=== PATIENT | female | born 1965 | race Caucasian/White ===

== ENCOUNTER 2018-10-25 11:44 | Inpatient (IN) ==
[2018-11-26] MEDS ORDERED: DULCOLAX PR PRN (09:22)
[2018-11-26] MEDS ORDERED: DESYREL PO PRN (09:22)
[2018-11-26] MEDS ORDERED: D5W 1,000 ML IV PRN (09:22)
[2018-11-26] MEDS ORDERED: MOTRIN PO PRN (09:22)
[2018-11-26] MEDS ORDERED: ROBAXIN PO PRN (09:22)
[2018-11-26] MEDS ORDERED: BENTYL PO PRN (09:22)
[2018-11-26] MEDS ORDERED: MAALOX PLUS LIQUID PO PRN (09:22)
[2018-11-26] MEDS ORDERED: ZOFRAN ODT PO PRN (09:22)
[2018-11-26] MEDS ORDERED: SENOKOT PO PRN (09:22)
[2018-11-26] MEDS ORDERED: SALINE LOCK IV FLUID XX ONE (09:22)
[2018-11-26] MEDS ORDERED: ZOFRAN IV PRN (09:22)
[2018-11-26] MEDS ORDERED: TUBERSOL ID ONE (09:22)
[2018-11-26] MEDS ORDERED: IMODIUM PO PRN (09:22)
[2018-11-26] MEDS ORDERED: TYLENOL PO PRN (09:22)
[2018-11-26] MEDS ORDERED: PHENOBARBITAL IV PRN (09:22)
[2018-11-26] MEDS ORDERED: LIBRIUM PO SCH (09:30)
[2018-11-26] MEDS ORDERED: M.V.I.-12 10 ML, FOLIC ACID 1 MG, MAGNESIUM SULFATE 1 GM, THIAMINE 100 MG in NS 1,000 ML IV ONE (10:30)
[2018-11-26 11:05] LABS: URINE SOURCE VOIDED
[2018-11-26 11:06] LABS: HEMATOCRIT 35.3 % (37.0-47.0); HEMOGLOBIN 12.1 g/dL (12.0-16.0); MCHC 34.3 g/dL (33-37); MPV 9.4 FL (7.4-10.4); RBC 3.46 XMIL (4.2-5.4); RDW 12.9 % (11.5-14.5); WBC 6.98 X1000 (4.8-10.8)
[2018-11-26 11:09] LABS: INR 0.97; PROTIME 13.4 Seconds (11.0-16.0)
[2018-11-26 11:11] LABS: AMYLASE 146 U/L (20-200); LIPASE 194 U/L (13-60)
[2018-11-26 11:15] LABS: ALBUMIN 4.3 g/dL (3.5-5.0); CALCIUM 8.6 mg/dL (8.8-10.2); CREATININE 1.6 mg/dL (0.5-0.9); POTASSIUM 4.5 mmol/L (3.5-5.1); TOTAL BILIRUBIN 0.5 mg/dL (0.20-1.00); TOTAL PROTEIN 7.3 g/dL (6.3-8.3)
[2018-11-26 11:16] LABS: BILIRUBIN URINE NEGATIVE (NEGATIVE); BLOOD URINE NEGATIVE (NEGATIVE); CLARITY SL. CLOUDY (CLEAR); COLOR YELLOW; GLUCOSE URINE NEGATIVE (NEGATIVE); KETONE URINE NEGATIVE (NEGATIVE); LEUKOCYTES URINE NEGATIVE (NEGATIVE); NITRITE URINE NEGATIVE (NEGATIVE); PROTEIN URINE TRACE mg/dL (NEGATIVE); UROBILINOGEN URINE NORMAL
[2018-11-26 11:23] LABS: URINE EPITHELIAL CELLS <10 /HPF (<10)
[2018-11-26 11:30] LABS: UR AMPHETAMINES QUAL NONE DETECTED (NONE DETECT); UR BARBITUATES QUAL NONE DETECTED (NONE DETECT); UR BENZODIAZEPIN QUAL PRESUMPTIVE POSITIVE (NONE DETECT); UR CANNABINOIDS QUAL NONE DETECTED (NONE DETECT); UR COCAINE QUAL NONE DETECTED (NONE DETECT); UR METHADONE QUAL NONE DETECTED (NONE DETECT); UR METHAMPHETAMINE QUAL NONE DETECTED (NONE DETECT); UR OPIATES QUAL NONE DETECTED (NONE DETECT); UR OXYCODONE QUAL NONE DETECTED (NONE DETECT); UR PCP QUAL NONE DETECTED (NONE DETECT); UR PROPOXYPHENE QUAL NONE DETECTED (NONE DETECT); UR TCA QUAL NONE DETECTED (NONE DETECT)
[2018-11-26] MEDS: LIBRIUM PO SCH ×2 (13:08→19:17)
[2018-11-26] MEDS: NICODERM PATCH TD PRN (14:27)
--- NOTE | 2018-11-26 19:56 | HISTORY AND PHYSICAL ---
CHIEF COMPLAINT: Nausea, vomiting. HISTORY OF PRESENT ILLNESS: Patient is 53-year-old female who [facility] secondary to nausea, vomiting, abdominal pain, myalgias. The patient has been having paroxysmal sweating, she has been abuse alcohol, has been trying to stop but withdrawal symptoms become too severe. SOCIAL HISTORY: Patient is , works at [employer]. She lives in [place]. PAST MEDICAL HISTORY: Hypertension, she had stent to the right coronary in May 2012 at [facility], she has a history of NV, gout, lupus, gastric ulcers, colitis. She has been trying to stop. She has had increased nausea, vomiting past week or so. She has had some weight loss. MEDICATIONS: Lasix 20, omeprazole 40, isosorbide 30, Xanax p.r.n., atorvastatin 80, metoprolol 50, benazepril 40, aspirin 81, citalopram 40, spironolactone 25, allopurinol 100, magnesium oxide 400. ALLERGIES: No known drug allergies. REVIEW OF SYSTEMS: CIWA score is 18 secondary to nausea, vomiting, tremors, headaches, myalgias, easily confused, paroxysmal sweating, anxious, tearful at times, unable to sit still, frequent sweating episodes, decreased oral intake. Denies any current chest pain, palpitation, shortness of breath. Denies any dysuria, frequency, urgency, hesitancy, polyuria, polydipsia. Denies skin rashes, weight loss or weight gain. SUBSTANCE ABUSE HISTORY: The patient was at [facility] in her mid 30s stayed 12 weeks in outpatient rehab. She has been inpatient psych few times secondary to depression. Notes that alcohol has caused trouble at her job and she is afraid that she is going to get fired. Started drinking at age 12, currently drinking vodka daily. FAMILY HISTORY: Noncontributory. PHYSICAL: Vital signs reviewed, stable. Patient is awake, alert, currently in no respiratory distress.HEENT: Normocephalic. Neck: Supple. CV: Regular rate. No murmurs. Chest: Clear, nonlabored. Abdomen: Soft, nondistended. Extremities: Moves all extremities. Neuro: She is awake, alert, oriented although she is fidgety on exam, has be redirected to answer questions. LABS: Pending. ASSESSMENT: 1. Nausea, vomiting. 2. Abdominal pain. 3. Myalgias. 4. Tremors. 5. Paresthesias. 6. Paroxysmal sweating. 7. Alcohol abuse withdrawal and admit for stabilization. 8. Coronary artery disease. 9. Hypertension. 10. High cholesterol. PLAN: Will continue patient on her chronic home medications although will watch her blood pressures closely, will continue to follow. Continue counseling and education. cc: Jonn Hannah MD
[2018-11-26] MEDS: SEROQUEL PO PRN (21:24)
[2018-11-26] MEDS: ATARAX PO PRN (21:24)
[2018-11-27] MEDS: LIBRIUM PO SCH ×4 (00:38→18:44)
[2018-11-27] MEDS: PROTONIX PO SCH (06:24)
[2018-11-27] MEDS: FOLIC ACID PO SCH (08:39)
[2018-11-27] MEDS: VITAMIN B-1 PO SCH (08:39)
[2018-11-27] MEDS: THERA M PLUS PO SCH (08:39)
[2018-11-27] MEDS: ZYLOPRIM PO SCH (10:48)
[2018-11-27] MEDS: ASPIRIN PO SCH (10:48)
[2018-11-27] MEDS: VITAMIN B-12 PO SCH (10:48)
[2018-11-27] MEDS: PYRIDOXINE PO SCH (10:48)
[2018-11-27] MEDS: LOPRESSOR PO SCH (10:48)
[2018-11-27] MEDS: ALDACTONE PO SCH (10:48)
[2018-11-27] MEDS: CELEXA PO SCH (10:49)
[2018-11-27] MEDS: PLAQUENIL PO SCH ×2 (10:49→20:04)
[2018-11-27] MEDS: MAG-OX PO SCH (10:49)
[2018-11-27] MEDS: IMDUR PO SCH (10:49)
[2018-11-27] MEDS: LASIX PO SCH (10:49)
[2018-11-27] MEDS: LOTENSIN PO SCH (10:49)
[2018-11-27] MEDS: SEROQUEL PO PRN (20:04)
[2018-11-27] MEDS: LIPITOR PO SCH (20:05)
[2018-11-27] MEDS: ATARAX PO PRN (20:05)
[2018-11-27] MEDS: NICODERM PATCH TD PRN (20:11)
[2018-11-28] MEDS: LIBRIUM PO SCH ×4 (01:07→17:17)
[2018-11-28] MEDS: PROTONIX PO SCH (06:17)
[2018-11-28] MEDS: VITAMIN B-12 PO SCH (10:18)
[2018-11-28] MEDS: FOLIC ACID PO SCH (10:18)
[2018-11-28] MEDS: VITAMIN B-1 PO SCH (10:18)
[2018-11-28] MEDS: ALDACTONE PO SCH (10:18)
[2018-11-28] MEDS: LOTENSIN PO SCH (10:18)
[2018-11-28] MEDS: PLAQUENIL PO SCH ×2 (10:19→20:32)
[2018-11-28] MEDS: CELEXA PO SCH (10:19)
[2018-11-28] MEDS: MAG-OX PO SCH (10:19)
[2018-11-28] MEDS: THERA M PLUS PO SCH (10:19)
[2018-11-28] MEDS: IMDUR PO SCH (10:19)
[2018-11-28] MEDS: LOPRESSOR PO SCH (10:19)
[2018-11-28] MEDS: ASPIRIN PO SCH (10:19)
[2018-11-28] MEDS: PYRIDOXINE PO SCH (10:20)
[2018-11-28] MEDS: ZYLOPRIM PO SCH (10:20)
[2018-11-28] MEDS: LASIX PO SCH (10:20)
[2018-11-28] MEDS ORDERED: REVIA PO ONE (18:50)
--- NOTE | 2018-11-28 18:59 | PROGRESS NOTE ---
DATE: 11/27/2018 SUBJECTIVE: Patient has no complaints. States overall she is feeling a little bit better. Tremors have improved. PHYSICAL EXAMINATION: Vital Signs: Reviewed and stable. General: She is in no current distress. ASSESSMENT: 1. Nausea, vomiting, and abdominal pain. 2. Myalgias. 3. Paresthesias. 4. Alcohol abuse withdrawal and stabilization. PLAN: We will continue patient in hospital. Continue to follow. Further orders as [*] . cc: Jonn Hannah MD
[2018-11-28] MEDS: SOLU-MEDROL IV SCH (19:24)
--- NOTE | 2018-11-28 19:59 | PROGRESS NOTE ---
DATE: 11/28/2018 SUBJECTIVE: Patient has no new complaints. States that she is itching all over but notes this is from a previous rash from being bitten by insects. She denies any tremors. States overall her alcohol withdrawal has improved tremendously. PHYSICAL: Vital signs reviewed. She is awake, alert. She is in no current distress.HEENT: Normocephalic. Neck: Supple. CV: Regular rate. Chest: Clear. Abdomen: Soft. Neuro: No focal changes. Extremities: Moves all extremities. Skin: She has multiple erythematous areas with excoriation. ASSESSMENT: 1. Insect bite with urticaria. Will add Solu-Medrol. 2. Nausea, vomiting. 3. Myalgias. 4. Paresthesias. 5. Tremors. 6. Alcohol abuse withdrawal and stabilization. PLAN: Will continue patient in the hospital, continue to follow, will add Solu-Medrol. Will wean her Librium. Further orders as needed. cc: Jonn Hannah MD
[2018-11-28] MEDS: LIPITOR PO SCH (20:32)
[2018-11-28] MEDS: SEROQUEL PO PRN (20:33)
[2018-11-29 01:38] VITALS: BP 118/55
[2018-11-29] MEDS: SOLU-MEDROL IV SCH (02:22)
[2018-11-29] MEDS: PROTONIX PO SCH (06:03)
[2018-11-29] MEDS: LASIX PO SCH (08:01)
[2018-11-29] MEDS: MAG-OX PO SCH (08:01)
[2018-11-29] MEDS: LIBRIUM PO SCH (08:01)
[2018-11-29] MEDS: IMDUR PO SCH (08:01)
[2018-11-29] MEDS: THERA M PLUS PO SCH (08:01)
[2018-11-29] MEDS: LOPRESSOR PO SCH (08:01)
[2018-11-29] MEDS: ZYLOPRIM PO SCH (08:01)
[2018-11-29] MEDS: ASPIRIN PO SCH (08:01)
[2018-11-29] MEDS: FOLIC ACID PO SCH (08:01)
[2018-11-29] MEDS: CELEXA PO SCH (08:01)
[2018-11-29] MEDS: ALDACTONE PO SCH (08:01)
[2018-11-29] MEDS: VITAMIN B-12 PO SCH (08:01)
[2018-11-29] MEDS: VITAMIN B-1 PO SCH (08:01)
[2018-11-29] MEDS: LOTENSIN PO SCH (08:01)
[2018-11-29] MEDS: PLAQUENIL PO SCH (08:02)
[2018-11-29] MEDS: PYRIDOXINE PO SCH (08:02)
[2018-11-29] MEDS ORDERED: NON-FORMULARY MED (Omeprazole 40 MG) PO SCH (09:00)
[2018-11-29] MEDS ORDERED: FOLIC ACID PO SCH (09:00)
== END 2018-11-29 09:10 | disposition home or self-care (01) | DRG 392 ==
LOC: P.DIRADM 11-26 08:43 → P.MEDSURG 11-26 09:52
PROVIDERS: ADMIT Family Medicine; ATTEND Family Medicine
CPT/HCPCS: 80053; 80104; 80301; 80305; 80307; 80320; 81001; 82055; 82150; 83690; 84703; 85027; 85610; 86580; A9270; G0431; G0434; G0477; G0480; G6040; J2930; J3411; J3475; J7030